=== PATIENT | female | born 1945 | race Caucasian/White ===

== ENCOUNTER → 2020-03-26 11:08 | Outpatient (CLI) | payer MEDICARE, OTHER, SELFPAY ==
--- NOTE | ~2020-03-26 | DEXA_ITS ---
Bone Density Report Name: Tayler Galaviz Age: 74 Sex: Female Ethnicity: White Date of : 1945 Indication: postmenopausal; screening for osteoporosis; height loss; history of glucocorticoids; Referring Provider: SIOMARA ARCEO Study: Bone densitometry was performed. Exam Date: March 26, 2020 Accession number: [id number] Bone Density: Region BMD T-score Z-score Classification AP Spine (L1, L4) 1.120 0.8 3.0 Normal Femoral Neck (Left) 0.650 -1.8 0.2 Osteopenia Total Hip (Left) 0.816 -1.0 0.6 Normal Femoral Neck (Right) 0.609 -2.2 -0.2 Osteopenia Total Hip (Right) 0.798 -1.2 0.5 Osteopenia Total Hip Mean 0.807 -1.1 0.6 Osteopenia World Health Organization criteria for BMD impression classify patients as: Normal (T-score at or above -1.0), Osteopenia (T-score between -1.0 and -2.5), or Osteoporosis (T-score at or below -2.5). 10-year Fracture Risk(1): Major Osteoporotic Fracture 20% Hip Fracture 5.3% Reported Risk Factors: [place] (), Neck BMD=0.609, BMI=32.7, glucocorticoids (1) FRAX(R) Version 3.08. Fracture probability calculated for an untreated patient. Fracture probability may be lower if the patient has received treatment. Previous Exams: Region Exam Age BMD T-score BMD Change BMD Change Date g/cm2 vs Baseline vs Previous AP Spine(L1, L4) 03/26/2020 74 1.120 0.8 -0.007 -0.096* 11/10/2016 71 1.216 1.6 0.089 -0.019 07/05/2011 66 1.235 1.8 0.108 0.055* 06/18/2008 63 1.180 1.3 0.053 0.053 03/31/2004 58 1.127 0.8 Total Hip(Left) 03/26/2020 74 0.816 -1.0 -0.122 -0.128* 11/10/2016 71 0.944 0.0 0.006 -0.023 09/22/2014 69 0.967 0.2 0.029 -0.012 07/05/2011 66 0.979 0.3 0.042 0.004 06/18/2008 63 0.975 0.3 0.037 0.037 03/31/2004 58 0.938 0.0 Total Hip(Right) 03/26/2020 74 0.798 -1.2 -0.167 -0.133* 11/10/2016 71 0.931 -0.1 -0.033 -0.026 09/22/2014 69 0.957 0.1 -0.008 -0.009 07/05/2011 66 0.966 0.2 0.001 0.005 06/18/2008 63 0.961 0.2 -0.004 -0.004 03/31/2004 58 0.964 0.2 *Denotes significance at 95% confidence level, LSC for AP Spine = 0.022 g/cm2, LSC for Total Hip = 0.027 g/cm2 Clinical Information Provided by Patient: H
--- NOTE | ~2020-03-26 | MM_ITS ---
EXAMINATION: MM screening lloyd BI w bhargav HISTORY: Screening mammogram TECHNIQUE: Craniocaudal and mediolateral oblique 3-D tomosynthesis images were obtained and synthetic 2-D images were generated. CAD analysis was submitted and interpreted. COMPARISON: 11/10/2016, 09/25/2015, 09/22/2014 bilateral digital screening mammogram examinations BREAST PARENCHYMAL COMPOSITION: There are scattered areas of fibroglandular density. FINDINGS: Occasional benign calcifications. There is no evidence of suspicious mass, calcification, o r architectural distortion to suggest malignancy in either breast. There has been no suspicious inter opal change. IMPRESSION: 1. No mammographic evidence of malignancy. 2. Recommend routine screening mammography in one year. BI-RADS Category 2: Benign finding(s). Reviewed, dictated and finalized at location A.
== END ==
PROVIDERS: PCP Internal Medicine; Visit Provider Obstetrics & Gynecology Gynecology
DX: Z12.31 Encounter for screening mammogram for malignant neoplasm of breast (principal); Z78.0 Asymptomatic menopausal state; M85.89 Other specified disorders of bone density and structure, multiple sites
CPT/HCPCS: 77063; 77067; 77080

== ENCOUNTER 2021-04-22 10:50 | Outpatient (CLI) | payer MEDICARE, OTHER, SELFPAY ==
[2021-04-22 12:39] LABS: Immunoglobulin G 767 mg/dL (700-1600)
== END 2021-04-22 10:51 | disposition home or self-care (01) ==
PROVIDERS: PCP Internal Medicine; Visit Provider Internal Medicine
DX: D80.1 Nonfamilial hypogammaglobulinemia (principal)
CPT/HCPCS: 36415; 82784

== ENCOUNTER 2022-03-22 16:59 | Emergency (ER) | payer MEDICARE, OTHER, SELFPAY ==
[2022-03-22] VITALS (23 sets, daily range): BP systolic 118–149; BP diastolic 47–92; PULSE 73–86; RESP 14–28; TEMP 36.8; O2SAT 92–100
--- NOTE | ~2022-03-22 | US_ITS ---
EXAMINATION: US renal BI DATE: 03/23/2022 13:36 INDICATION: Acute renal failure. TECHNIQUE: Multiple ultrasound grayscale images of the kidneys were obtained. COMPARISON: CT abdomen 08/31/2011 FINDINGS: The right kidney measures 10.7 x 4.8 x 5.0 cm. The left kidney measures 8.2 x 4.0 x 3.6 cm. The right kidney demonstrates increased parenchymal echogenicity, consistent with nephropathy. There is modera te right hydronephrosis. The bladder is decompressed. IMPRESSION: 1. Moderate right hydronephrosis. 2. Mild atrophy of left kidney. Reviewed, dictated and finalized at location A.
--- NOTE | ~2022-03-22 | XR_ITS ---
EXAMINATION: XR chest 2V Exam Date/Time: 03/22/2022 17:56 CDT HISTORY: SOB, pedal edema; hx of lung transplant 4 yrs ago Comparison: 07/29/2012 and 08/05/2012. RESULT: Lines, tubes, and devices: None. Lungs and pleura: Diffuse reticular opacities, cuffing, indistinct josé miguel and vessels. Obscuration of left hemidiaphragm with left lateral costophrenic angle blunting. No posterior angle blunting. Major and minor fissure fluid. Reticulonodular opacities in the lateral view. Cardiomediastinal silhouette: Stable. Other: No acute osseous or upper abdominal finding. IMPRESSION: Pulmonary findings likely represent interstitial edema with small amount of fissural fluid. No large pleural effusion. Presumed left basilar scarring. Infection is not excluded. Reviewed, dictated and finalized at [facility]. IMPRESSION: Pulmonary findings likely represent interstitial edema with small amount of fis sural fluid. No large pleural effusion. Presumed left basilar scarring. Infecti on is not excluded.
--- NOTE | ~2022-03-22 | NM_ITS ---
EXAMINATION: NM pulmonary perfusion DATE: 03/22/2022 19:57 INDICATION: Shortness of breath. TECHNIQUE: 5.32 mCi Tc-99m MAA was administered intravenously for perfusion images. Scintigraphic im ages of the chest were obtained. COMPARISON: Chest 2 views 03/22/2022 FINDINGS: Perfusion images show matched large defects throughout left lung and small defects in right lower lob e. IMPRESSION: 1. Nondiagnostic (intermediate probability for pulmonary embolism). I discussed this result with Dr. Daniel. Reviewed, dictated and finalized at location A. IMPRESSION: 1. Nondiagnostic (intermediate probability for pulmonary embolism). I discusse d this result with Dr. Daniel.
--- NOTE | 2022-03-22 17:11 | ECG_ITS ---
Measurements Intervals [place] Rate: 73 P: 31 [place]: 149 QRS: 20 QRSD: 113 T: 9 QT: 399 QTc: 443 Interpretive Statements SINUS RHYTHM POSSIBLE LEFT ATRIAL ENLARGEMENT INCOMPLETE RIGHT BUNDLE BRANCH BLOCK BORDERLINE ST-T WAVE ABNORMALITY- ANT/INF LEADS BASELINE ARTIFACT- III, V2, V4-V6 BORDERLINE ECG NO PREVIOUS ECG AVAILABLE FOR COMPARISON Electronically Signed On 03-22-2022 21:50:02 CDT by Landen Danielle D.O.
[2022-03-22 17:26] LABS: Basophils Percent Auto 0.3 % (0.2-1.2); Eosinophils Absolute Auto 0.1 K/mm3 (0-0.3); Hematocrit 25.4 % (37.0-47.0); Hemoglobin 8.6 g/dL (12.0-15.0); Immature Granulocyte Absolute 0.06 K/mm3 (0.00-0.031); Lymphocytes Absolute Auto 0.27 K/mm3 (0.9-3.2); Lymphocytes Percent Auto 4.7 % (18.3-44.2); Mean Corpuscular HGB Conc 33.9 g/dl (32-36); Mean Corpuscular Hemoglobin 38.4 pg (26-34); Mean Corpuscular Volume 113.4 fl (80-100); Mean Platelet Volume 9.4 fl (7.4-10.4); Monocytes Absolute Auto 0.4 K/mm3 (0.1-0.6); Monocytes Percent Auto 6.7 % (2.6-8.5); Neutrophils Percent Auto 86.3 % (45.5-73.1); Nucleated Red Blood Cells Perc 0.3 % (0.0-0.2); Platelet Count Result 214 k/mm3 (150-375); Red Blood Count 2.24 M/mm3 (4.2-5.4); Red Cell Distribution Width 15.9 % (11.5-14.5); White Blood Count 5.8 K/mm3 (4.5-10.0)
[2022-03-22 17:35] LABS: Alanine Aminotransferase 21 U/L (6-35); Albumin Level 4.2 g/dL (3.5-5.1); Alkaline Phosphatase 103 U/L (38-126); Anion Gap 15 mmol/L (8-16); Aspartate Amino Transferase 30 U/L (14-36); Bilirubin,Total 0.6 mg/dL (0.2-1.3); Blood Urea Nitrogen 81 mg/dL (7-17); Calcium 8.7 mg/dL (8.4-10.2); Carbon Dioxide 21 mmol/L (22-30); Chloride 104 mmol/L (98-107); Estimated Glomerular Filt Rate 6; Glucose 155 mg/dL (65-110); Potassium 4.1 mmol/L (3.4-5.0); Sodium 140 mmol/L (137-145)
--- NOTE | 2022-03-22 18:16 | ED.SOB ---
HPI - SOB/Dyspnea General Chief Complaint: Shortness of Breath/Dyspnea <Faviola Boyce MD - Last Filed: 03/23/22 15:15> Stated Complaint: SOB <Faviola Boyce MD - Last Filed: 03/23/22 15:15> Time Seen by Provider: 03/22/22 18:16 <Faviola Boyce MD - Last Filed: 03/23/22 15:15> Source: patient <Faviola Boyce MD - Last Filed: 03/23/22 15:15> Mode of arrival: ambulatory <Faviola Boyce MD - Last Filed: 03/23/22 15:15> Limitations: no limitations <Faviola Boyce MD - Last Filed: 03/23/22 15:15> History of Present Illness HPI Narrative: Patient is a 76 yo female with a history of COPD, stage III chronic kidney disease, CNI nephropathy, Pulmonary aspergillosis, hypogammaglobulinemia with hx of IVIG infusion, s/p lung transplant in 2018, Type II DM, presenting to the ER for evaluation of shortness of breath. Pt reports her dyspnea resolves at rest and is worsened with exertion. She endorses mild orthopnea as well. She denies chest pain. She denies cough or hemoptysis. Pt is still taking Tacrolimus as well as monthly IVIG. No significant cardiac history. Pt is not anticoagulated. Patient also reports right lower extremity edema which is worsened at the end of the day. No recent long car or air travel. She does have a history of DVT. Patient was told to come to this facility for evaluation because [facility] has no beds available currently. <Faviola Boyce MD - Last Filed: 03/23/22 15:15> Related Data Home Medications: Home Medications Medication Instructions Recorded Confirmed acyclovir 200 mg capsule 200 mg PO BID 06/03/19 03/23/22 calcium carbonate 600 mg calcium 600 mg PO BID 06/03/19 03/23/22 (1,500 mg) tablet (Calcium) furosemide 40 mg tablet 20 mg PO QAM 06/03/19 03/23/22 mecobalamin (vitamin B12) 1,000 1,000 mcg sublingual DAILY 06/03/19 03/23/22 mcg disintegrating tablet,sublingual metoprolol succinate 25 mg 25 mg PO DAILY 06/03/19 03/23/22 tablet,extended release 24 hr pantoprazole 40 mg tablet,delayed 40 mg PO QAM 06/03/19 03/23/22 release (Protonix) tacrolimus 1 mg capsule, 1.5 mg PO BID 06/03/19 03/23/22 immediate-release (Prograf) amlodipine 5 mg tablet 10 mg PO DAILY 06/04/19 03/23/22 azathioprine 50 mg tablet (Imuran) See Rx Instructions .Route .COMPLEX 06/04/19 03/23/22 immune glob,gamma(IgG) 10 25 gm IV MONTHLY 06/04/19 03/23/22 [id number]-[id number] 0 to 50 mcg/mL IV solution prednisone 5 mg tablet 5 mg PO DAILY 06/04/19 03/23/22 sulfamethoxazole 400 1 tablet PO .MWF three x's a wk 06/04/19 03/23/22 mg-trimethoprim 80 mg tablet (Bactrim) cholecalciferol (vitamin D3) 50 50 mcg PO DAILY 11/29/21 03/23/22 mcg (2,000 unit) capsule <Faviola Boyce MD - Last Filed: 03/23/22 15:15> Allergies/Adverse Reactions: Allergies Allergy/AdvReac Type Severity Reaction Status Date / Time No Known Allergies Allergy NONE Verified 11/29/21 13:27 <Faviola Boyce MD - Last Filed: 03/23/22 15:15> Review of Systems Review of Systems: CONSTITUTIONAL: Denies fever, chills, or sweats. EYES: Denies visual changes, redness, or discharge. ENT: Denies rhinorrhea, congestion, sore throat, or otalgia. CARDIOVASCULAR: Denies chest pain, palpitations, pt reports lower extremity edema, R >L RESPIRATORY: Denies cough, reports dyspnea with exertion GASTROINTESTINAL: Denies abdominal pain, nausea, vomiting, or diarrhea. GENITOURINARY: Denies dysuria or hematuria. SKIN: Denies rash or itching. MUSCULOSKELETAL: Denies back pain, joint pain, or myalgia. NEUROLOGIC: Denies headache, numbness, or weakness. <Faviola Boyce MD - Last Filed: 03/23/22 15:15> PMFSH Past Medical History Medical History: Medical History Ac DVT/embl low ext NOS Adult general medical exam Anemia Chronic renal failure, stage 4 (severe) Dysuria Essential (primary) hypertension Hyperchole
--- NOTE | 2022-03-22 19:12 | PC.NURSE ---
report to [employer] she assumed care of pt.
[2022-03-22 19:55] LABS: NT Pro B Type Natriuretic Pept 14800 pg/mL (5-100); Troponin I 0.016 ng/mL (0.000-0.034)
[2022-03-22 20:03] LABS: Lactic Acid Reflex 0.8 mmol/L (0.7-2.0)
[2022-03-22 20:06] LABS: INR 1.3; Prothrombin Time 15.2 Seconds (11.1-14.7)
[2022-03-22 20:31] LABS: SARS-CoV-2 RNA PCR Negative
[2022-03-22] MEDS: HEPARIN SOD/D5W 100 UNITS/ML 25,000 UNITS/250 ML BAG 10 UNITS IV CONT (20:39)
[2022-03-22] MEDS: SODIUM CHLORIDE 0.9% IV 500 ML 999 ML IV CONT (20:46)
[2022-03-22] MEDS: ACETAMINOPHEN 325 MG TABLET 650 MG PO (22:25)
[2022-03-22] MEDS: LINEZOLID 600 MG/300 ML 600 MG/300 ML SOLN 300 MG IVPB (22:53)
[2022-03-23] VITALS (16 sets, daily range): BP systolic 126–161; BP diastolic 71–87; PULSE 62–88; RESP 15–21; TEMP 36.7; O2SAT 97–100
[2022-03-23] MEDS: ACETAMINOPHEN 500 MG TABLET 1000 MG PO (04:08)
[2022-03-23 05:46] LABS: Basophils Percent Auto 0.4 % (0.2-1.2); Eosinophils Absolute Auto 0.1 K/mm3 (0-0.3); Immature Granulocyte Absolute 0.07 K/mm3 (0.00-0.031); Immature Granulocyte Percent A 1.4 % (0-0.5); Lymphocytes Absolute Auto 0.28 K/mm3 (0.9-3.2); Lymphocytes Percent Auto 5.7 % (18.3-44.2); Mean Corpuscular HGB Conc 33.3 g/dl (32-36); Mean Corpuscular Hemoglobin 38.1 pg (26-34); Mean Corpuscular Volume 114.3 fl (80-100); Mean Platelet Volume 9.5 fl (7.4-10.4); Monocytes Absolute Auto 0.4 K/mm3 (0.1-0.6); Monocytes Percent Auto 8.5 % (2.6-8.5); Neutrophils Absolute Auto 4.1 K/mm3 (1.3-6.7); Nucleated Red Blood Cells Perc 0.4 % (0.0-0.2); Platelet Count Result 196 k/mm3 (150-375); Red Cell Distribution Width 15.6 % (11.5-14.5)
[2022-03-23 05:58] LABS: Anion Gap 16 mmol/L (8-16); Blood Urea Nitrogen 75 mg/dL (7-17); Calcium 8.1 mg/dL (8.4-10.2); Carbon Dioxide 21 mmol/L (22-30); Chloride 104 mmol/L (98-107); Estimated Glomerular Filt Rate 7; Glucose 117 mg/dL (65-110); Sodium 141 mmol/L (137-145)
[2022-03-23 06:51] LABS: Anisocytosis 1+ (NORMAL); Platelet Estimate Adequate (Adequate)
--- NOTE | 2022-03-23 07:12 | PC.NURSE ---
Report received from Shonda JOSEPH and care of pt assumed at this time.
[2022-03-23] MEDS: TACROLIMUS 0.5 MG CAPSULE 1.5 MG PO (10:09)
[2022-03-23] MEDS: LINEZOLID 600 MG/300 ML 600 MG/300 ML SOLN 300 MG IVPB (10:11)
--- NOTE | 2022-03-23 11:04 | PC.NURSE ---
Spoke with [facility] transfer center, no bed available and hospital at full capacity. Gave updated VS
[2022-03-23] MEDS: ACETAMINOPHEN 325 MG TABLET 650 MG PO (11:49)
[2022-03-23 14:15] LABS: Basophils Percent Auto 0.4 % (0.2-1.2); Eosinophils Absolute Auto 0.2 K/mm3 (0-0.3); Hematocrit 24.7 % (37.0-47.0); Hemoglobin 8.3 g/dL (12.0-15.0); Immature Granulocyte Absolute 0.06 K/mm3 (0.00-0.031); Immature Granulocyte Percent A 1.1 % (0-0.5); Lymphocytes Absolute Auto 0.31 K/mm3 (0.9-3.2); Lymphocytes Percent Auto 5.8 % (18.3-44.2); Mean Corpuscular HGB Conc 33.6 g/dl (32-36); Mean Corpuscular Hemoglobin 38.6 pg (26-34); Mean Corpuscular Volume 114.9 fl (80-100); Mean Platelet Volume 9.5 fl (7.4-10.4); Monocytes Absolute Auto 0.5 K/mm3 (0.1-0.6); Monocytes Percent Auto 9.5 % (2.6-8.5); Neutrophils Absolute Auto 4.3 K/mm3 (1.3-6.7); Neutrophils Percent Auto 80.2 % (45.5-73.1); Nucleated Red Blood Cells Perc 0.4 % (0.0-0.2); Platelet Count Result 210 k/mm3 (150-375); Red Blood Count 2.15 M/mm3 (4.2-5.4); Red Cell Distribution Width 15.9 % (11.5-14.5); White Blood Count 5.4 K/mm3 (4.5-10.0)
[2022-03-23 14:20] LABS: Creatinine Urine 145.6 mg/dL; Urea Random Urine 563 MG/DL
[2022-03-23 14:29] LABS: INR 1.2; Prothrombin Time 14.9 Seconds (11.1-14.7)
[2022-03-23 14:30] LABS: Partial Thromboplastin Time 28.6 SECONDS (22.3-36.8)
[2022-03-23 15:33] LABS: Free T4 Free Thyroxine Reflex 1.22 ng/dL (0.78-2.19)
[2022-03-23] MEDS: HEPARIN SOD/D5W 100 UNITS/ML 25,000 UNITS/250 ML BAG 10 UNITS IV CONT (15:38)
[2022-03-23 15:45] LABS: Platelet Estimate Adequate (Adequate)
[2022-03-23 15:46] LABS: Anisocytosis 1+ (NORMAL); Hypochromasia 1+ (NORMAL)
--- NOTE | 2022-03-23 15:55 | PM.IMHP ---
H&P: HPI History of Present Illness Date/Time: 03/23/22 15:55 Chief Complaint: Shortness of breath Narrative: This is a 76-year-old female patient with a history of COPD, stage 3 chronic kidney disease. Cranial nerve drawn neuropathy. Pulmonary aspergillosis, hypogammaglobulinemia with a history of IV G infusion. Patient is not due for an infusion is weak. She has had a history of lung transplant in 2018 and is still intact colitis. The patient has orthopnea but denies any chest pain.the patient is not on any anticoagulation. She does have a history of having a DVT but has not had any recent long car or air travel. The patient is awaiting a bed at [facility] but no beds were available. The patient is being admitted for observation to this hospital awaiting bed at [facility] were ex assistant/program director is located. Nephrology and ex assistant/program director agreed to see the patient while she is here. H&H is 8.3 and 24.7. MCV 114.9. Negative for COVID. Renal ultrasound read as moderate right hydronephrosis. Mild atrophy of left kidney. Pulmonary perfusion imaging shows nondiagnostic intermediate probability pulmonary emboli. The patient was started on heparin drip. Is being admitted for observation status on the date of service of 03/23/2022. Review of Systems Review of Systems: See HPI All systems reviewed & are unremarkable except as noted in HPI and below Constitutional: Constitutional: Reports as per HPI and Reports no additional constitutional complaints Eyes: Eyes: Reports as per HPI and Reports no additional eye complaints ENT: Reports system reviewed and no additional complaints, except as documented and Reports Normal hearing present Cardiovascular: Cardiovascular: Reports no additional cardiovascular complaints Respiratory: Respiratory: Reports no additional respiratory complaints and Reports no additional respiratory complaints Gastrointestinal: Gastrointestinal: Reports as per HPI and Reports no additional gastrointestinal complaints Musculoskeletal: Musculoskeletal: Reports no additional musculoskeletal complaints Integumentary/Breasts: Skin/Breast: Reports system reviewed and no additional complaints, except as docu and Reports as per HPI Neurologic: Reports system reviewed and no additional complaints, except as documented, Reports as per HPI and Reports Normal hearing present Psychiatric: Psychiatric: Reports no additional psychiatric complaints and Reports as per HPI Endocrine: Endocrine: Reports no additional endocrine complaints Hematologic/Lymphatic: Hematologic/Lymphatic: Reports no additional hematologic/lymphatic complaints Allergic/Immunologic: Allergic/Immunologic: Reports no additional allergic/immunologic complaints PMFSH Past Medical History Medical History Ac DVT/embl low ext NOS Adult general medical exam Anemia Chronic renal failure, stage 4 (severe) Dysuria Essential (primary) hypertension Hypercholesterolemia Hyperglycemia Hypogammaglobulinaemia, unspecified Surgical History Surgical History H/O tubal ligation History of back surgery History of removal of pigmented skin lesion Lung transplant status, bilateral Family History Family History Mother Patient's mother is Rheumatic fever Heart failure Father Patient's father is Subdural hematoma Social History Social History (Updated 03/23/22 @ 16:41 by Karli Marks NP) Social History: She is and has 3 children her son Jose 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 She is retired from [employer]. Code status full code Smoking status: Former smoker Second hand tobacco smoke exposure: No Smoking end date: 07/10/99 Alcohol intake: current Drinks per week: 14 Subst
--- NOTE | 2022-03-23 16:30 | PC.NURSE ---
ems to arrive at 2000
--- NOTE | 2022-03-23 16:30 | PC.NURSE ---
[place] [id number] [facility] [phone]
[2022-03-23 17:03] LABS: Total Triiodothyronine (T3) 0.83 NG/ML (0.97-1.69)
--- NOTE | 2022-03-23 20:46 | PC.NURSE ---
called [facility] for ETA update. Crew is on the way and eta is 20- 30 minutes.
--- NOTE | 2022-03-23 21:17 | PC.NURSE ---
[facility] here
[2022-03-25 22:54] LABS: Tacrolimus Prograf 5.5 mcg/L
== END 2022-03-23 21:38 | disposition short-term general hospital (02) ==
PROVIDERS: Emergency Provider Emergency Medicine; PCP Internal Medicine
DX: N17.9 Acute kidney failure, unspecified (principal); R06.00 Dyspnea, unspecified; D64.9 Anemia, unspecified; Z94.2 Lung transplant status; D80.1 Nonfamilial hypogammaglobulinemia; E78.00 Pure hypercholesterolemia, unspecified; J44.9 Chronic obstructive pulmonary disease, unspecified; I12.9 Hypertensive chronic kidney disease with stage 1 through stage 4 chronic kidney disease, or unspecified chronic kidney disease; N18.30 Chronic kidney disease, stage 3 unspecified; E11.22 Type 2 diabetes mellitus with diabetic chronic kidney disease; R60.9 Edema, unspecified; Z86.718 Personal history of other venous thrombosis and embolism; Z87.891 Personal history of nicotine dependence; Z20.822 Contact with and (suspected) exposure to COVID-19
CPT/HCPCS: 36415; 71046; 76775; 78580; 80048; 80053; 80197; 82570; 83605; 83880; 84439; 84443; 84480; 84484; 84540; 85025; 85380; 85610; 85730; 87040; 87147; 87181; 87186; 93005; 96361; 96365; 96367; 96368; 99291; A9270; A9540; C9803; J0692; J1644; J2020; J7040; U0003; U0005